=== PATIENT | male | born 1955 | race Caucasian/White ===

== ENCOUNTER 2018-02-22 13:27 | Emergency (ER) | payer OTHER ==
[2018-02-22 14:06] LABS: ADD MAN DIFF? YES; BASO % 0 % (0-3); EOS # 0.1 x10^3/uL (0.0-0.7); EOS % 1 % (0-3); HEMOGLOBIN 16.2 g/dL (13.0-17.5); LYMPH # 0.6 x10^3/uL (1.0-4.8); LYMPH % 6 % (24-48); MEAN CORPUSCULAR HEMOGLOBIN 30 pg (25-35); MEAN CORPUSCULAR HGB CONC 34 g/dL (31-37); MEAN CORPUSCULAR VOLUME 86 fL (79-100); MONO # 0.7 x10^3/uL (0.0-1.1); MONO % 7 % (0-9); NEUT # 8.7 x10^3uL (1.8-7.7); NEUT % 86 % (31-73); PLATELET COUNT 198 x10^3/uL (140-400); RED BLOOD COUNT 5.47 x10^6/uL (4.30-5.70); RED CELL DISTRIBUTION WIDTH 13.3 % (11.5-14.5); WHITE BLOOD COUNT 10.1 x10^3/uL (4.0-11.0)
[2018-02-22 14:14] LABS: INR 1.3 (0.8-1.1); PARTIAL THROMBOPLASTIN TIME 27 SEC (24-38); PROTHROMBIN TIME PATIENT 15.7 SEC (11.7-14.0)
[2018-02-22 14:18] LABS: ANION GAP 5 (6-14); BLOOD UREA NITROGEN 12 mg/dL (8-26); BUN/CREATININE RATIO 8 (6-20); CALCIUM 8.6 mg/dL (8.5-10.1); CARBON DIOXIDE 30 mmol/L (21-32); CHLORIDE 103 mmol/L (98-107); CREATININE 1.5 mg/dL (0.7-1.3); GFR 47.3; GLUCOSE 101 mg/dL (70-99); POTASSIUM 3.9 mmol/L (3.5-5.1); SODIUM 138 mmol/L (136-145)
[2018-02-22] MEDS: IV NORMAL SALINE 1000ML BAG 1,000 ML IV (14:19)
[2018-02-22 14:24] LABS: ALBUMIN 3.2 g/dL (3.4-5.0); ALK PHOS 62 U/L (46-116); ALT (SGPT) 17 U/L (16-63); AST (SGOT) 13 U/L (15-37); TOTAL BILIRUBIN 0.7 mg/dL (0.2-1.0); TOTAL PROTEIN 6.4 g/dL (6.4-8.2)
[2018-02-22 14:25] LABS: TROPONINI < 0.017 ng/mL (0.000-0.055)
[2018-02-22 14:30] LABS: % BANDS 14 % (0-9); % LYMPHS 2 % (24-48); % MONOS 4 % (0-10); % SEGS 80 % (35-66); PLT ESTIMATE ADEQUATE (ADEQUATE)
[2018-02-22 14:38] LABS: BILIRUBIN,URINE SMALL (NEG); CLARITY,URINE CLOUDY; COLOR,URINE AMBER; GLUCOSE,URINE NEGATIVE (NEG); NITRITE,URINE NEGATIVE (NEG); PROTEIN,URINE 30 mg/dL (NEG-TRACE)
[2018-02-22 14:59] LABS: BACTERIA,URINE 0 /HPF (0-FEW); HYALINE CASTS, URINE FEW /HPF; RBC,URINE 0 /HPF (0-2)
[2018-02-22 15:03] LABS: NT-PRO BNP 195 pg/mL (0-124)
[2018-02-22 15:13] LABS: INFLUENZA A PATIENT NEGATIVE (NEGATIVE)
[2018-02-22 15:14] LABS: INFLUENZA B PATIENT POSITIVE (NEGATIVE); OBC FLU VALID
[2018-02-22] MEDS: IV NORMAL SALINE 500ML BAG 500 ML IV (15:59)
[2018-02-22] MEDS: ACETAMINOPHEN 500 MG TABLET PO (15:59)
== END 2018-02-22 17:30 | disposition home or self-care (01) ==
LOC: ER 13:27
DX: R55 Syncope and collapse (principal); J10.1 Influenza due to other identified influenza virus with other respiratory manifestations; R51 Headache; M54.2 Cervicalgia; I10 Essential (primary) hypertension; W18.39XA Other fall on same level, initial encounter; Y93.89 Activity, other specified; Y92.89 Other specified places as the place of occurrence of the external cause; Y99.8 Other external cause status
CPT/HCPCS: 36415; 70450; 71045; 72125; 80053; 81001; 83880; 84484; 85007; 85025; 85610; 85730; 87804; 87804-59; 93005; 96360; 96361; 99285-25; J7030; J7040

== ENCOUNTER → 2019-02-14 | Outpatient (CLI) | payer OTHER ==
[2018-02-22 17:10] VITALS: BP 112/62
[~2019-02-14] MED LIST: OSEL75CA PO
--- NOTE | 2019-02-14 12:38 | KCIC ---
CT HEAD INDICATION: Memory changes, dizziness, headache COMPARISON: 03/02/2006 Exposure: One or more of the following individualized dose reduction techniques were utilized for this examination: 1. Automated exposure control 2. Adjustment of the mA and/or kV according to patient size 3. Use of iterative reconstruction technique TECHNIQUE: 5 mm contiguous axial images were obtained from the skull base to the vertex in both bone and soft tissue algorithm. FINDINGS: No abnormal attenuation within the brain parenchyma. No evidence of acute intracranial hemorrhage. No extra-axial fluid collections. No mass effect or midline shift. Ventricular size is appropriate. Basal cisterns are patent. No fractures identified.Balderas-white differentiation is preserved.Globes and orbits are within normal limits. Paranasal sinuses and mastoid air cells are clear. IMPRESSION: No acute intracranial findings. Electronically signed by: Boogie Rodas MD (02/14/2019 12:35 PM) [id number]
== END | disposition home or self-care (01) ==
LOC: KCIC CT 12:06
PROVIDERS: ATTEND Family Medicine
DX: R41.3 Other amnesia (principal); R51 Headache; R42 Dizziness and giddiness; R41.0 Disorientation, unspecified
CPT/HCPCS: 70450